=== PATIENT | female | born 1950 | race African-American/Black ===

== ENCOUNTER 2019-05-18 23:18 | Inpatient (IN) ==
[2019-05-19] MEDS ORDERED: MAGNESIUM SULF RIDER 4 GM in PREMIX 1 EACH IV PRN (02:22)
[2019-05-19] MEDS ORDERED: ONDANSETRON 4 MG/2 ML VIAL IV PRN (02:22)
[2019-05-19] MEDS ORDERED: ACETAMINOPHEN 325 MG TABLET PO PRN (02:22)
[2019-05-19] MEDS ORDERED: MAGNESIUM SULF RIDER 2 GM in PREMIX 1 EACH IV PRN (02:22)
[2019-05-19] MEDS ORDERED: DEXTROSE 50% 25 GM/50 ML SYRINGE IV PRN (03:15)
[2019-05-19] MEDS ORDERED: GLUCAGON 1 MG VIAL IM PRN (03:15)
[2019-05-19] MEDS ORDERED: LABETALOL 20 MG/4 ML SYRINGE IV PRN (03:27)
[2019-05-19 07:32] LABS: Basophils # 0.1 10*3/uL (0.0-0.2); Basophils % 0.5 % (0.0-0.8); Eosinophils # 0.1 10*3/uL (0.0-0.87); Eosinophils % 1.1 % (0.00-10.9); Hematocrit 41.6 VOL% (35.7-47.0); Hemoglobin 13.2 GM/DL (12.0-16.0); Immature Granulocytes % 0.2 %; Immature Granulocytes Absolute 0.02 #; Lymphocytes # 2.1 10*3/uL (1.4-4.0); Lymphocytes % 22.5 % (21.3-54.2); Mean Corpuscular HGB Conc 31.7 GM/DL (32-36); Mean Platelet Volume 11.6 FL (9.6-12.0); Monocytes % 10.6 % (1.7-12.7); Neutrophils % 65.1 % (38.7-73.9); Platelet Count 278 T/CUMM (130-400); Red Blood Count 4.84 MC/CUMM (3.8-5.5); Red Cell Distribution Width 14.3 % (9.3-17.3); White Blood Count 9.3 T/CUMM (4-12)
[2019-05-19] MEDS: INSULIN REGULAR 100 UNIT/ML SUBCUT SCH ×4 (07:45→21:01)
[2019-05-19 07:53] LABS: Albumin 3.3 G/DL (3.4-5.0); Bilirubin,Total 1.2 MG/DL (0.2-1.0); Calcium 8.5 MG/DL (8.5-10.1); Osmolality,Calculated 280.3 MOS/KG (273-304); Total Protein 6.9 G/DL (6.4-8.3)
[2019-05-19] MEDS: FUROSEMIDE 40 MG/4 ML VIAL IV SCH ×2 (09:12→16:35)
[2019-05-19] MEDS: PANTOPRAZOLE 40 MG TABLET PO SCH (09:12)
[2019-05-19] MEDS ORDERED: POTASSIUM CHLORIDE 20 MEQ TABLET PO ONE (09:45)
[2019-05-19] MEDS ORDERED: ASPIRIN CHEW 81 MG TABLET PO ONE (09:58)
[2019-05-19] MEDS: ENOXAPARIN 60 MG/0.6 ML SYRINGE SUBCUT SCH ×2 (11:24→22:02)
[2019-05-19] MEDS: carvediloL 3.125 MG TABLET PO SCH ×4 (11:24→21:01)
[2019-05-19] MEDS: POTASSIUM CHLORIDE 20 MEQ TABLET PO SCH (21:01)
[2019-05-20 04:14] LABS: Basophils # 0.1 10*3/uL (0.0-0.2); Basophils % 0.5 % (0.0-0.8); Eosinophils # 0.2 10*3/uL (0.0-0.87); Eosinophils % 1.9 % (0.00-10.9); Hematocrit 39.2 VOL% (35.7-47.0); Hemoglobin 12.5 GM/DL (12.0-16.0); Immature Granulocytes % 0.3 %; Immature Granulocytes Absolute 0.03 #; Lymphocytes # 1.8 10*3/uL (1.4-4.0); Lymphocytes % 19.7 % (21.3-54.2); Mean Corpuscular HGB Conc 31.9 GM/DL (32-36); Mean Corpuscular Volume 86.9 FL (87-102); Mean Platelet Volume 11.7 FL (9.6-12.0); Monocytes % 13.4 % (1.7-12.7); Neutrophils % 64.2 % (38.7-73.9); Platelet Count 249 T/CUMM (130-400); Red Blood Count 4.51 MC/CUMM (3.8-5.5); Red Cell Distribution Width 14.6 % (9.3-17.3); White Blood Count 9.2 T/CUMM (4-12)
[2019-05-20 04:41] LABS: Bilirubin,Total 1.6 MG/DL (0.2-1.0); Calcium 8.3 MG/DL (8.5-10.1); Osmolality,Calculated 282.4 MOS/KG (273-304)
[2019-05-20 04:47] LABS: Risk Ratio 3.02; Thyroid Stimulating Hormone 1.43 uIU/ml (0.358-3.74); VLDL CHOLESTEROL 17.8 MG/DL
[2019-05-20] MEDS: FUROSEMIDE 40 MG/4 ML VIAL IV SCH ×2 (09:46→15:39)
[2019-05-20] MEDS: carvediloL 6.25 MG TABLET PO SCH ×3 (09:47→21:10)
[2019-05-20] MEDS: PANTOPRAZOLE 40 MG TABLET PO SCH (09:48)
[2019-05-20] MEDS: ASPIRIN CHEW 81 MG TABLET PO SCH (09:48)
[2019-05-20] MEDS: POTASSIUM CHLORIDE 20 MEQ TABLET PO SCH (09:48)
[2019-05-20] MEDS: carvediloL 3.125 MG TABLET PO SCH (11:03)
[2019-05-20] MEDS: INSULIN REGULAR 100 UNIT/ML SUBCUT SCH (11:03)
[2019-05-20] MEDS: SPIRONOLACTONE 25 MG TABLET PO SCH (11:14)
[2019-05-20] MEDS: ENOXAPARIN 60 MG/0.6 ML SYRINGE SUBCUT SCH (11:41)
[2019-05-21] MEDS: carvediloL 6.25 MG TABLET PO SCH (05:07)
[2019-05-21 05:16] LABS: Calcium 8.5 MG/DL (8.5-10.1); Osmolality,Calculated 276.8 MOS/KG (273-304)
[2019-05-21] MEDS ORDERED: carvediloL 12.5 MG TABLET PO SCH (09:00)
[2019-05-21] MEDS ORDERED: ENOXAPARIN 40 MG/0.4 ML SYRINGE SUBCUT SCH (09:00)
[2019-05-21] MEDS ORDERED: FUROSEMIDE 40 MG TABLET PO SCH (09:00)
[2019-05-21] MEDS: ASPIRIN CHEW 81 MG TABLET PO SCH (09:19)
[2019-05-21] MEDS: SPIRONOLACTONE 25 MG TABLET PO SCH (09:19)
[2019-05-21] MEDS: PANTOPRAZOLE 40 MG TABLET PO SCH (09:20)
[2019-05-21] MEDS: FUROSEMIDE 40 MG/4 ML VIAL IV SCH (09:35)
[2019-05-21 12:07] VITALS: BP 86/62
== END 2019-05-21 13:35 | disposition home or self-care (01) | DRG 292 ==
LOC: N.TELES 05-19 01:49 → SUATTDRO 05-19 01:49
PROVIDERS: ADMIT Internal Medicine; ATTEND Internal Medicine